=== PATIENT | female | born 1930 | race Caucasian/White ===

== ENCOUNTER 2017-10-02 12:20 | Emergency (ER) | payer MEDICARE, OTHER ==
[2017-10-02] MEDS: ONDANSETRON 4 MG INJ IV (13:55)
[2017-10-02] MEDS: SOD CHLORIDE 0.9% 500 ML IV (13:55)
[2017-10-02] MEDS: KETOROLAC 15 MG INJ IV (13:55)
[2017-10-02] MEDS: morphine 2 MG INJ IV (13:56)
[2017-10-02 14:03] LABS: ADD MAN DIFF? NO
[2017-10-02 14:05] LABS: BASOPHIL # 0.1 10^3/ul (0.0-0.1); BASOPHILS % 0.8 % (0.0-2.0); EOSINOPHILS # 0.1 10^3/ul (0.0-0.5); EOSINOPHILS % 1.7 % (0.0-7.0); HEMATOCRIT 40.2 % (37.0-47.0); HEMOGLOBIN 13.1 g/dl (12.0-16.0); LYMPHOCYTES % 28.3 % (15.0-51.0); MEAN CORPUSCULAR HEMOGLOBIN 30.8 pg (29.0-33.0); MEAN CORPUSCULAR HGB CONC 32.6 g/dl (32.0-37.0); MEAN CORPUSCULAR VOLUME 94.6 fl (82.0-101.0); MEAN PLATELET VOLUME 10.7 fl (7.4-10.4); MONOCYTE # 0.9 10^3/ul (0.3-0.9); MONOCYTES % 12.4 % (0.0-11.0); NEUTROPHIL # 4.1 10^3/ul (1.6-7.5); NEUTROPHILS % 56.5 % (39.0-77.0); PLATELET COUNT 196 10^3/UL (140-415); RED BLOOD COUNT 4.25 10^6/ul (4.20-5.40); RED CELL DISTRIBUTION WIDTH 12.5 % (11.5-14.5)
[2017-10-02 14:05] LABS: WHITE BLOOD COUNT 7.2 10^3/ul (4.8-10.8)
[2017-10-02 14:28] LABS: ANION GAP 17 (8-16); BLOOD UREA NITROGEN 22 mg/dl (7-20); CALCIUM 9.6 mg/dl (8.4-10.2); CARBON DIOXIDE 30 mmol/L (21-31); CHLORIDE 102 mmol/L (97-110); CREATININE 0.84 mg/dl (0.44-1.00); GLUCOSE 118 mg/dl (70-220); POTASSIUM 4.7 mmol/L (3.5-5.1); SODIUM 144 mmol/L (135-144)
[2017-10-02 14:30] LABS: C-REACTIVE PROTEIN < 0.5 mg/dl (0.0-0.9)
[2017-10-02 15:29] LABS: ERYTHROCYTE SEDIMENTATION RATE 15 mm/Hr (0-30)
== END 2017-10-02 18:20 | disposition home or self-care (01) ==
LOC: E/R 12:20
DX: M25.551 Pain in right hip (principal); I10 Essential (primary) hypertension; Z79.84 Long term (current) use of oral hypoglycemic drugs
CPT/HCPCS: 36415; 73700; 80048; 85025; 85651; 86140; 96374; 96375; 99285-25